=== PATIENT | male | born 1945 | race Caucasian/White ===

== ENCOUNTER 2017-02-15 08:04 | Inpatient (IN) | payer OTHER, MEDICARE ==
[~2017-02-15] VITALS: Ht 188 cm; Wt 74.5 kg
[~2017-02-15 08:04] MED LIST: BUPROPION100 MG PO; CAL MAG ZINC PO; COUMADIN3 MG PO; DILTIAZEM120 M1 PO; DILTIAZEM180 M1 PO; DILTIAZEM90 MG PO; EC ASPIRIN325 M1 PO; FINASTERIDE5 MG PO; GLIPIZIDE5 MG PO; LOPRESSOR 550 MG/TAB PO; METFORMIN; METFORMIN500 MG PO; PRADAXA150 MG PO
--- NOTE | 2017-02-15 08:13 | NUR ---
PATIENT AMBULATED TO ROOM WITH STEADY GAIT
--- NOTE | 2017-02-15 08:23 | NUR ---
CARDIZEM 10 MG IVP OVERRIDDEN WITH VERBAL ORDER READ BACK FROM ER MD. SIVP WITH RATE CONTROL OF AFIB OBTAINED AT 90-100
[2017-02-15 08:59] LABS: HEMATOCRIT 48.5 % (39.0-50.0); HEMOGLOBIN 16.5 g/dl (14.0-18.0); IMMATURE GRANULOCYTES 0.3 % (0.0-1.0); MEAN CELL VOLUME 102.8 fL CALC (80.0-100.0); NEUT# 4.64 thou/uL (1.82-7.42); RED BLOOD COUNT 4.72 mill/uL (4.70-6.10); RED CELL DISTRI WIDTH 12.4 % (11.5-15.5)
[2017-02-15 09:20] LABS: ALBUMIN 4.5 g/dL (3.2-5.0); ALKALINE PHOSPHATASE 61 u/l (38-126); ANION GAP 20 (6-22 (CALC)); BILIRUBIN, TOTAL 0.9 mg/dL (0.0-1.4); BUN 9 mg/dL (8-23); BUN/CREATININE RATIO 12 (12-20 (CALC)); CALCIUM 9.1 mg/dL (8.4-10.2); CARBON DIOXIDE 29 mmol/l (22-30); CHLORIDE 97 mmol/l (95-108); CREATININE 0.7 mg/dL (0.7-1.3); GFR > 60 ML/MIN (>=60 (CALC)); GFR FOR AFR.AMER. > 60 ML/MIN (>=60 (CALC)); GLUCOSE 174 mg/dL (82-115); POTASSIUM 3.4 mmol/l (3.5-5.1); SGOT/AST 40 u/l (19-48); SGPT/ALT 40 u/l (11-66); SODIUM 143 mmol/l (137-146); TOTAL PROTEIN 7.5 g/dL (6.3-8.2)
--- NOTE | 2017-02-15 09:20 | NUR ---
PATIENT RESTING AWAITING LAB AND RADIOLOGY RESULTS. PATIENT DENIES ANY PAIN OR DISCOMFORT AT THIS TIME
--- NOTE | 2017-02-15 10:00 | NUR ---
PATIENT RESTING AWAITING LAB AND RADIOLOGY RESULTS. PATIENT MEDICATED ORDERED AND DENIES ANY PAIN AT THIS TIME
--- NOTE | 2017-02-15 10:35 | NUR ---
PATEINT RESTING AWAITNG ROOM ASSIGNMNET PATIENT DENIES ANY PAIN OR DISCOMFORT AT THIS TIME
--- NOTE | 2017-02-15 10:49 | NUR ---
SBAR PRINTED TO FLOOR
--- NOTE | 2017-02-15 10:59 | NUR ---
REPORT CALLED TO SIMONE IN MED SURG.
--- NOTE | 2017-02-15 11:15 | NUR ---
PT.ARRIVED TO FLOOR VIA WC, ACCOMPANIED BY NURSE FROM ED, PT.APPEARS TO BE IN STABLE CONDITION, PT.IS BEING ORIENTED TO ROOM,CALL SYSTEM, SAFETY PRECAUTIONS, POC AT THIS TIME. WILL FOLLOW-UP WITH ASSESSMENT. PT.HAS BEEN INSTRUCTED TO CALL IF ANY NEEDS ARISE
[2017-02-15 11:22] VITALS: BP 138/77
[2017-02-15 12:40] LABS: ACT PARTIAL THROMBO TIME 40.1 SECONDS (20.0-32.5); INTERNATIONAL NORMALIZED RATIO 1.2 RATIO (0.7-1.3); PROTHROMBIN TIME 12.8 SECONDS (9.0-12.5)
[2017-02-15 12:43] LABS: CHOLESTEROL HDL RATIO 2.4 (<4.4 (CALC)); MAGNESIUM 1.2 mg/dL (1.6-2.3)
--- NOTE | 2017-02-15 13:30 | NUR ---
PT.ASSESSED, REPORTS LUNG CANCER IN 2013/LEFT LOWER LUNG REMOVED/NO CHEMO OR RADIATION/LUNG SOUNDS DIMINISHED LOWER/UPPER CLEAR LUNG SOUNDS, PT.HAS NOT HAD FLU OR PNEUMONIA VACCINE AND REPORTS DOES NOT WANT THEM. NO RECENT FALLS, BM YESTERDAY, NO ISSUES URINATING. DENIES ANY DIZZINESS OR N/V/WEAKNESS, REPORTS HAVING ONLY SOB THIS AM BEFORE COMING TO HOSPITAL. POC DISCUSSED WITH PT., IV SITE FLUSHED, AND PT.INSTRUCTED TO CALL IF ANY NEEDS ARISE
[2017-02-15] MEDS ORDERED: MOTRIN200 MG PO (15:34)
[2017-02-15 16:02] VITALS: BP 119/66
--- NOTE | 2017-02-15 19:10 | NUR ---
RECEIVED CHANGE OF SHIFT REPORT FROM SHANNA NICHOLS. PATIENT SITTING UP IN BED AND APPEARS NOT TO BE IN ANY APPARENT ACUTE DISTRESS OR DISCOMFORT. NO VOICED COMPLAINT AT THIS TIME. WILL CONTINUE TO MONITOR.
[2017-02-15 19:15] VITALS: BP 140/83
--- NOTE | 2017-02-16 | NUR ---
PATIENT AWAKE AND LYING IN BED. NO APPARENT ACUTE DISTRESS NOTED. NO VOICED COMPALIANTS.
[2017-02-16 00:27] VITALS: BP 125/76
--- NOTE | 2017-02-16 04:00 | NUR ---
NO APPARENT ACUTE CHANGES NOTED IN PATIENT'S CONDITION.
[2017-02-16 04:20] VITALS: BP 122/76
[2017-02-16 06:04] LABS: HEMATOCRIT 43.6 % (39.0-50.0); HEMOGLOBIN 14.8 g/dl (14.0-18.0); IMMATURE GRANULOCYTES 0.4 % (0.0-1.0); MEAN CELL VOLUME 101.2 fL CALC (80.0-100.0); MEAN CORPUSCULAR HGB 34.3 pG CALC (26.0-32.0); MEAN CORPUSCULAR HGB CONC 33.9 g/L CALC (32.0-36.0); NEUT# 5.93 thou/uL (1.82-7.42); RED BLOOD COUNT 4.31 mill/uL (4.70-6.10)
--- NOTE | 2017-02-16 07:20 | NUR ---
REPORT RECEIVED FROM NIGHT NURSE. PT.IS IN BED WITH LIGHTS OUT. NO S/S OF DISTRESS AT THIS TIME. CALL LIGHT IS AT SIDE. WILL F/UP WITH V/S AND AM MEDICATIONS
[2017-02-16 07:26] LABS: ANION GAP 16 (6-22 (CALC)); BUN 13 mg/dL (8-23); BUN/CREATININE RATIO 22 (12-20 (CALC)); CALCIUM 9.1 mg/dL (8.4-10.2); CARBON DIOXIDE 29 mmol/l (22-30); CHLORIDE 101 mmol/l (95-108); CREATININE 0.6 mg/dL (0.7-1.3); GFR > 60 ML/MIN (>=60 (CALC)); GFR FOR AFR.AMER. > 60 ML/MIN (>=60 (CALC)); GLUCOSE 227 mg/dL (82-115); POTASSIUM 5.1 mmol/l (3.5-5.1); SODIUM 141 mmol/l (137-146)
[2017-02-16 08:20] VITALS: BP 137/79
[2017-02-16 08:52] VITALS: BP 137/79
[2017-02-16] MEDS ORDERED: IPRATROPIU0.5 MG/3 M NEB (13:11)
[2017-02-16] MEDS ORDERED: ZITHROMAX500 MG PO (13:11)
[2017-02-16] MEDS ORDERED: PREDNISONE10 MG PO (13:11)
[2017-02-16] MEDS ORDERED: NEBULIZER COMPRESSOR (13:41)
--- NOTE | 2017-02-16 15:46 | NUR ---
PT.OFF THE FLOOR IN GOOD CONDITION SELF AMBULATORY, IV SITE APPEARS HEALTHY/IV REMOVED, ART OBJECTS SALESPERSON HAS ALSO BEEN REMOVED.
== END 2017-02-16 15:43 | disposition home or self-care (01) | DRG 309 ==
LOC: ED 08:04 → ED-I 10:18 → ED 10:38 → MS2 10:39
PROVIDERS: Emergency Medicine; Nurse Practitioner Family; ADMIT Internal Medicine; ATTEND Internal Medicine
DX: I48.91 Unspecified atrial fibrillation (principal); J44.0 Chronic obstructive pulmonary disease with (acute) lower respiratory infection; J20.9 Acute bronchitis, unspecified; I16.0 Hypertensive urgency; I10 Essential (primary) hypertension; E11.9 Type 2 diabetes mellitus without complications; E87.6 Hypokalemia; E83.42 Hypomagnesemia; F17.210 Nicotine dependence, cigarettes, uncomplicated; Z79.02 Long term (current) use of antithrombotics/antiplatelets; Z85.51 Personal history of malignant neoplasm of bladder; Z85.118 Personal history of other malignant neoplasm of bronchus and lung; Z79.84 Long term (current) use of oral hypoglycemic drugs; Z90.2 Acquired absence of lung [part of]